=== PATIENT | male | born 1955 | race Caucasian/White ===

== ENCOUNTER → 2016-11-14 | Outpatient (CLI) | payer BC ==
--- NOTE | 2016-11-14 15:37 | RADRPT ---
PROCEDURE: X-RAY LEFT KNEE CLINICAL INDICATION: Left knee pain TECHNIQUE: Three views of the left knee are available for review. COMPARISON: None available FINDINGS: There is marked medial joint space narrowing. There is a subtle subcortical cyst of the peripheral m edial tibia consistent with degenerative change. Findings most likely represent a chronic displaced meniscal tear. As moderate patellofemoral arthrosis. There is a moderate joint effusion which likely reflects synovitis and can be seen secondary to a meniscal tear. No evidence for fracture. IMPRESSION: 1. Marked medial joint space narrowing most consistent with a chronic medial meniscus tear. 2. Moderate patellofemoral arthrosis. 3. Joint effusion likely reflecting synovitis which could also be seen with a meniscal tear and art hrosis. 4. No evidence for fracture. RPTAT: XX .Waldo Temple MD, Date Time Electronically viewed and signed by .Waldo Temple MD, on 11/14/2016 15:37 .T/
--- NOTE | 2016-12-17 19:38 | HKNOTE ---
DATE OF SERVICE: 11/14/2016 MAIN COMPLAINT: Pain in the left knee. HISTORY OF MAIN COMPLAINT: The patient is a 61-year-old male who complained of pain in his left kne e and left hip. He has had pain in the knee since 07/2016. He saw Dr. Nikunj Rizzo in [place] who drained his knee. His mother recommended that he be referred to our group. PRESENT COMPLAINTS: The pain is localized to the knee without radiation up or down the leg. Pain i s described as being moderate and is aggravated by weightbearing and stair climbing. He does not ge t rest pain. He does get night pain. He takes Advil which does give him great relief. He has not tried any other medications in the past. He has no back pain or history of back problems. No numbn ess or tingling in the legs. On a level surface, he can walk about 50 feet using his stepson's cane . The knee does not lock and does not feel unstable. He limps part of the time. His leg lengths are equal. He does not have a shoe lift. He can tie hi s shoelaces but he cannot clip his toenails. PAST ORTHOPEDIC HISTORY: No prior orthopedic operations. PRIOR CORTISONE INTAKE: None. ALCOHOL INTAKE: None. OTHER JOINT PROBLEMS: None. BLOOD TESTS FOR ARTHRITIS: None. PRIOR INJURIES TO HIPS OR KNEES: None. 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 PAST MEDICAL HISTORY: Hypertension, depression and anxiety. PAST SURGICAL HISTORY: Negative. DRUG ALLERGIES: NONE. MEDICATIONS 1. Amitriptyline. 2. Buspirone. 3. Risperidone. 4. . 5. Valsartan. 6. Amlodipine. 7. Duloxetine. FAMILY HISTORY: Father of diabetes. Mother of a stroke. SYSTEMS REVIEW: Hypertension, otherwise entirely negative. HABITS: The patient does not smoke or drink alcoholic beverages. PHYSICAL EXAMINATION: GENERAL: The patient is a fit-looking 61-year-old male. VITAL SIGNS: Height 5 feet 10 inches, weight 200 pounds. Blood pressure 130/80, temperature 98.7. GAIT: The patient's gait is slightly antalgic. He walks without a walking aid. HIPS: Both hips have full range of motion without pain. LEFT KNEE: Varus alignment. Extension and flexion are full with minimal pain. 4+ crepitus in the knee and under the patella. 1+ effusion. The left knee shows normal alignment. Active and passive extension is 0 degrees. Active and passive flexion is 135 degrees. The medial and lateral collateral ligaments and cruciate ligaments are intact. David test is negative. There is no effusion, tender ness, scarring, crepitus, or cysts. The patella tracks normally. There is no tenderness on the artic ular surface of the patella or in the patellar groove. The Q angle is normal. RIGHT KNEE: The right knee shows normal alignment. Active and passive extension is 0 degrees. Activ e and passive flexion is 135 degrees. The medial and lateral collateral ligaments and cruciate ligam ents are intact. David test is negative. There is no effusion, tenderness, scarring, crepitus, or cysts. The patella tracks normally. There is no tenderness on the articular surface of the patella o r in the patellar groove. The Q angle is normal. IMAGING: Plain x-rays of the left knee obtained today at the [facility] were rev iewed. These show [id number] medial joint loss with secondary osteophytes, subarticular sclerosis , intraosseous cyst formation. DIAGNOSES: 1. Severe degenerative osteoarthritis of the left knee. 2. Hypertension. 3. Depression and anxiety. MANAGEMENT: Under sterile conditions, the left knee was aspirated of about 160 mL of fluid. Becaus e the fluid was somewhat turbid, it was sent for cell count, culture and sensitivity. After the kne e had been fully aspirated it was injected with 40 mg of Kenalog and 10 mL of 2% lidocaine. The patient will be seen again in a month's time for reevaluation unless he is completely free of pa in, in which case he will return after the pain troubles him again. He was advised that sooner or later he will need to have a knee replacement . We did not spend any time discussing knee replacement surgery. Dictated By: KEILA STEWART/PETER Conf#: [id number] DID#: [id number]
== END | disposition home or self-care (01) ==
LOC: HKI 09:28
DX: M17.12 Unilateral primary osteoarthritis, left knee (principal); M25.562 Pain in left knee; I10 Essential (primary) hypertension; F32.9 Major depressive disorder, single episode, unspecified; F41.9 Anxiety disorder, unspecified
CPT/HCPCS: 20610; 73562; G0463

== ENCOUNTER → 2017-02-25 | Outpatient (CLI) | END | disposition home or self-care (01) ==